=== PATIENT | female | born 1950 | race Caucasian/White ===

== ENCOUNTER 2018-02-26 20:33 | Observation (INO) | payer MEDICARE, BC ==
[~2018-02-26] VITALS: Ht 167.6 cm; Wt 102.3 kg
[~2018-02-26 20:33] MED LIST: ATORVASTATIN CA20 MG PO; LEVOTHYROXINE100 MC1 PO; PROPRANOLOL HCL40 MG PO; Z NIFEDIPINE PO; Z.0.LEVOXYL100 MCG PO; Z.0.LOVASTATIN40 MG PO; Z.2.METFORMIN HCL500 PO
[2018-02-26] MEDS ORDERED: METFORMIN HCL500 MG PO (20:58)
[2018-02-26] MEDS ORDERED: ATORVASTATIN CA20 MG PO (20:58)
[2018-02-26] MEDS ORDERED: LEVOTHYROXINE75 MCG PO (20:58)
[2018-02-26] MEDS ORDERED: VERAPAMIL ER120 MG PO (20:58)
[2018-02-26] MEDS ORDERED: PROPRANOLOL HCL40 MG PO (20:58)
[2018-02-26] MEDS ORDERED: PANTOPRAZOLE 40 MG 10ML VIAL IV STA (21:45)
[2018-02-26] MEDS ORDERED: SODIUM CHLORIDE 0.9% 1000ML 1,000 ML IV STA (21:45)
[2018-02-26 21:59] LABS: BASOPHILS # (AUTO) 0.1 (0.0-0.1); BASOPHILS % 0.6 % (0.0-1.0); EOSINOPHILS # (AUTO) 0.1 (0.0-0.4); EOSINOPHILS % 0.8 % (0.0-6.0); HEMATOCRIT 37.2 % (34.2-44.1); HEMOGLOBIN 12.6 g/dL (12.0-16.0); LYMPHOCYTES # (AUTO) 1.7 (1.0-3.2); MEAN CORPUSCULAR HEMOGLOBIN 31.1 pg (28-32); MEAN CORPUSCULAR HGB CONC 33.9 g/dL (31-35); MEAN CORPUSCULAR VOLUME 91.9 fL (81-99); MONOCYTES # (AUTO) 0.7 (0.2-0.8); NEUTROPHILS # (AUTO) 8.8 (2.1-6.9); NEUTROPHILS % 77.2 % (38.7-80.0); PLATELET COUNT 283 x10e3/uL (140-360); RED BLOOD COUNT 4.05 x10e6/uL (3.6-5.1); RED CELL DISTRIBUTION WIDTH 12.9 % (11.7-14.4)
[2018-02-26 22:04] LABS: INR 0.99; PROTHROMBIN TIME 12.3 seconds (11.9-14.5)
[2018-02-26 22:07] LABS: PARTIAL THROMBOPLASTIN TIME 22.5 seconds (23.8-35.5)
[2018-02-26 22:12] LABS: ALANINE AMINOTRANSFERASE 27 IU/L (0-55); ALBUMIN 3.3 g/dL (3.5-5.0); ALBUMIN/GLOBULIN RATIO 1.1 (0.8-2.0); ALKALINE PHOSPHATASE 95 IU/L (40-150); ANION GAP 13.5 mmol/L (8-16); BLOOD UREA NITROGEN 19 mg/dL (7-26); BUN/CREATININE RATIO 28 (6-25); CALCIUM 8.1 mg/dL (8.4-10.2); CARBON DIOXIDE 21 mmol/L (22-29); CHLORIDE 107 mmol/L (98-107); CREATINE KINASE 43 IU/L (29-168); CREATININE, SERUM 0.68 mg/dL (0.57-1.11); EST GLOMERULAR FILTRATION RATE > 60 ML/MIN (60-); GLUCOSE 105 mg/dL (74-118); MAGNESIUM 1.7 MG/DL (1.3-2.1); POTASSIUM 4.5 mmol/L (3.5-5.1); SODIUM 137 mmol/L (136-145)
[2018-02-26 22:32] LABS: THYROID STIMULATING HORMONE 1.252 uIU/mL (0.350-4.940)
[2018-02-26 23:08] LABS: BILIRUBIN,URINE NEGATIVE (NEGATIVE); CLARITY,URINE CLEAR (CLEAR); COLOR,URINE YELLOW (YELLOW); KETONES,URINE NEGATIVE (NEGATIVE); LEUKOCYTE ESTERASE ,URINE NEGATIVE (NEGATIVE); NITRITE,URINE NEGATIVE (NEGATIVE); PROTEIN,URINE DIPSTICK TRACE (NEGATIVE); URINE UROBILINOGEN 0.2 mg/dL (0.2 - 1)
--- NOTE | 2018-02-26 23:15 | Diagnostic Imaging Report ---
EXAMINATION: Head and cervical spine CT without contrast. HISTORY: Status post fall week ago, head trauma, severe headache, blurry vision COMPARISON: None. TECHNIQUE: Multidetector axial images were obtained without contrast from the foramen magnum to the vertex and through the cervical spine. The images were reconstructed using brain and bone algorithms. Thin section brain images were reformatted into coronal and sagittal planes. HEAD CT FINDINGS: Skull: No lytic or blastic lesions. No fractures. Parenchyma: Normal. No mass, hemorrhage or CT evidence of acute vascular insult. Brain volume: Normal for age. Ventricles: No hydrocephalus or displacement. Arteries: No density suggestive of thrombus. Dural sinuses: No abnormal density. Extra-axial spaces: No abnormal density. Foramen magnum: No mass, Chiari malformation, or basilar invagination. Sella: No obvious mass. Paranasal/mastoid sinuses: Imaged portions unremarkable. CERVICAL SPINE CT FINDINGS: Alignment:Normal alignment and lordosis. Soft tissues: Normal. Vertebrae: Normal height and density. No acute fracture, infection or neoplasm. Degenerative changes: C4-C5: Facet arthrosis on the left, minimal left foraminal narrowing. C5-C6: Asymmetric to left disc osteophyte and bilateral uncovertebral arthrosis. Severe bilateral foraminal stenoses. C6-C7: Disc osteophyte complex asymmetric to the right, bilateral uncovertebral and facet hypertrophy. Severe right and mild left foraminal stenosis. IMPRESSION: Head CT: No intracranial abnormalities, particularly no hemorrhage. Cervical spine CT: 1. No acute fractures or dislocations. 2. Chronic degenerative changes as described. Note: Acute post traumatic spinal cord, vascular or ligamentous injury cannot adequately be assessed with CT. Signed by: Dr. Jackelyn Gann M.D. on 02/26/2018 11:12 PM
[2018-02-26 23:23] LABS: BACTERIA,URINE RARE /HPF; EPITHELIAL CELLS,URINE FEW /LPF; RBC,URINE 0-5 /HPF (0-5); WBC,URINE (MAN) 0-5 /HPF (0-5)
[2018-02-26] MEDS ORDERED: KETOROLAC TROMETHAMINE 30 MG/ML VIAL IV STA (23:23)
--- NOTE | 2018-02-26 23:25 | Diagnostic Imaging Report ---
EXAMINATION: CHEST SINGLE (PORTABLE) INDICATION: Headache, neck pain status post fall COMPARISON: None FINDINGS: TUBES and LINES: None. LUNGS: Lungs are well inflated. Lungs are clear. There is no evidence of pneumonia or pulmonary edema. PLEURA: No pleural effusion or pneumothorax. HEART AND MEDIASTINUM: The cardiomediastinal silhouette is unremarkable. BONES AND SOFT TISSUES: No acute osseous lesion. Soft tissues are unremarkable. UPPER ABDOMEN: No free air under the diaphragm. IMPRESSION: No acute thoracic abnormality. Signed by: Dr. Duc Rosa M.D. on 02/26/2018 11:21 PM
[2018-02-26] MEDS ORDERED: METOCLOPRAMIDE HCL 10 MG/2ML VIAL IV ONE (23:30)
[2018-02-26] MEDS ORDERED: DIPHENHYDRAMINE HCL INJ 50 MG/ML VIAL IV ONE (23:30)
[2018-02-27] VITALS (9 sets, daily range): BP systolic 90–149; BP diastolic 50–72
[2018-02-27] MEDS ORDERED: ONDANSETRON HCL 4 MG ORAL DISINTEGRATING TAB ONE (00:21)
[2018-02-27] MEDS: HYDROCODONE/APAP 7.5MG-325MG 1 EA TAB PO PRN ×2 (00:21→21:26)
--- OUTSIDE RECORDS SUMMARY | 2018-02-27 00:27 | XMS REPORT ---
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 Allergies, Adverse Reactions, Alerts This patient has no known allergies or adverse reactions. Medications This patient has no known medications. Results Test Description Test Time Test Comments Text Results Atomic Results Result Comments CHEST SINGLE (PORTABLE) [place] [address] Patient Name: IRA DSOUZA MR #: [id number] : 1950 Age/Sex: 67/F Req #: [id number] Adm Physician: Ordered by: ALFONZO THRASHER MD Report #: [id number] Location: ER Room/Bed: Procedure: [id number] DX/CHEST SINGLE (PORTABLE) Exam Date: 02/26/18 Exam Time: 2300 REPORT STATUS: Signed EXAMINATION: CHEST SINGLE (PORTABLE) INDICATION: Headache, neck pain status post fall COMPARISON: None FINDINGS: TUBES and LINES: None. LUNGS: Lungs are well inflated. Lungs are clear. There is no evidence of pneumonia or pulmonary edema. PLEURA: No pleural effusion or pneumothorax. HEART AND MEDIASTINUM: The cardiomediastinal silhouette is unremarkable. BONES AND SOFT TISSUES: No acute osseous lesion. Soft tissues are unremarkable. UPPER ABDOMEN: No free air under the diaphragm. IMPRESSION: No acute thoracic abnormality. Signed by: Dr. Duc Rosa M.D. on 02/26/2018 11:21 PM Dictated By: DUC RODRIGUEZ MD 20 COPY TO: ALFONZO THRASHER MD CT BRAIN WO [place] [address] Patient Name: IRA DSOUZA MR #: [id number] : 1950 Age/Sex: 67/F Req #: [id number] Adm Physician: Ordered by: ALFONZO THRASHER MD Report #: [id number] Location: ER Room/Bed: Procedure: [id number] CT/CT BRAIN WO Exam Date: 02/26/18 Exam Time: 2255 REPORT STATUS: Signed EXAMINATION: Head and cervical spine CT without contrast. HISTORY: Status post fall week ago, head trauma, severe headache, blurry vision COMPARISON: None. TECHNIQUE: Multidetector axial images were obtained without contrast from the foramen magnum to the vertex and through the cervical spine. The images were reconstructed using brain and bone algorithms. Thin section brain images were reformatted into coronal and sagittal planes. HEAD CT FINDINGS: Skull: No lytic or blastic lesions. No fractures. Parenchyma: Normal. No mass, hemorrhage or CT evidence of acute vascular insult. Brain volume: Normal for age. Ventricles: No hydrocephalus or displacement. Arteries: No density suggestive of thrombus. Dural sinuses: No abnormal density. Extra-axial spaces: No abnormal density. Foramen magnum: No mass, Chiari malformation, or basilar invagination. Sella: No obvious mass. Paranasal/mastoid sinuses: Imaged portions unremarkable. CERVICAL SPINE CT FINDINGS: Alignment:Normal alignment and lordosis. Soft tissues: Normal. Vertebrae: Normal height and density. No acute fracture, infection or neoplasm. Degenerative changes: C4-C5: Facet arthrosis on the left, minimal left foraminal narrowing. C5-C6: Asymmetric to left disc osteophyte and bilateral uncovertebral arthrosis. Severe bilateral foraminal stenoses. C6-C7: Disc osteophyte complex asymmetric to the right, bilateral uncovertebral and facet hypertrophy. Severe right and mild left foraminal stenosis. IMPRESSION: Head CT: No intracranial abnormalities, particularly no hemorrhage. Cervical spine CT: 1. No acute fractures or dislocations. 2. Chronic degenerative changes as described. Note: Acute post traumatic spinal cord, vascular or ligamentous injury cannot adequately be assessed with CT. Signed by: Dr. Jackelyn Gann M.D. on 2017 11:12 PM Dictated By: JACKELYN GANN MD 11 Transcribed By: BONNY on 02/26/182311 COPY TO: ALFONZO THRASHER MD CT CERVICAL SPINE WO [place] [address] Patient Name: IRA DSOUZA MR #: [id number] : 1950 Age/Sex: 67/F Req #: [id number] Adm Physician: Ordered by: ALFONZO THRASHER MD Report #: [id number] Location: ER Room/Bed: Procedure: [id number] CT/CT CERVICAL SPINE WO Exam Date: 02/26/18 Exam Time: 5 REPORT STATUS: Signed EXAMINATION: Head and cervical spine CT without contrast. HISTORY: Status post fall week ago, head trauma, severe headache, blurry vision COMPARISON: None. TECHNIQUE : Multidetector axial images were obtained without contrast from the foramen magnum to the vertex and through the cervical spine. The images were reconstructed using brain and bone algorithms. Thin section brain images were reformatted into coronal and sagittal planes. HEAD CT FINDINGS: Skull: No lytic or blastic lesions. No fractures. Parenchyma: Normal. No mass, hemorrhage or CT evidence of acute vascular insult. Brain volume: Normal for age. Ventricles: No hydrocephalus or displacement. Arteries: No density suggestive of thrombus. Dural sinuses: No abnormal density. Extra-axial spaces: No abnormal density. Foramen magnum: No mass, Chiari malformation, or basilar invagination. Sella: No obvious mass. Paranasal/mastoid sinuses: Imaged portions unremarkable. CERVICAL SPINE CT FINDINGS: Alignment:Normal alignment and lordosis. Soft tissues: Normal. Vertebrae: Normal height and density. No acute fracture, infection or neoplasm. Degenerative changes: C4-C5: Facet arthrosis on the left, minimal left foraminal narrowing. C5-C6: Asymmetric to left disc osteophyte and bilateral uncovertebral arthrosis. Severe bilateral foraminal stenoses. C6-C7: Disc osteophyte complex asymmetric to the right, bilateral uncovertebral and facet hypertrophy. Severe right and mild left foraminal stenosis.
[2018-02-27] MEDS ORDERED: DEXTROSE 50% SYRINGE 50 ML IV PRN (00:30)
[2018-02-27] MEDS ORDERED: ONDANSETRON HCL 4 MG ORAL DISINTEGRATING TAB PO ONE (00:30)
[2018-02-27] MEDS ORDERED: KETOROLAC TROMETHAMINE 30 MG/ML VIAL IV PRN (00:30)
[2018-02-27] MEDS: SODIUM CHLORIDE 0.9% 1000ML 1,000 ML IV SCH (05:45)
[2018-02-27 06:35] LABS: BASOPHILS # (AUTO) 0.1 (0.0-0.1); BASOPHILS % 0.5 % (0.0-1.0); EOSINOPHILS # (AUTO) 0.1 (0.0-0.4); EOSINOPHILS % 1.2 % (0.0-6.0); HEMATOCRIT 35.1 % (34.2-44.1); HEMOGLOBIN 11.7 g/dL (12.0-16.0); LYMPHOCYTES # (AUTO) 2.3 (1.0-3.2); LYMPHOCYTES % 22.4 % (18.0-39.1); MEAN CORPUSCULAR HEMOGLOBIN 31.3 pg (28-32); MEAN CORPUSCULAR HGB CONC 33.3 g/dL (31-35); MEAN CORPUSCULAR VOLUME 93.9 fL (81-99); MONOCYTES # (AUTO) 0.8 (0.2-0.8); MONOCYTES % 7.7 % (4.4-11.3); NEUTROPHILS # (AUTO) 6.9 (2.1-6.9); NEUTROPHILS % 67.9 % (38.7-80.0); PLATELET COUNT 294 x10e3/uL (140-360); RED BLOOD COUNT 3.74 x10e6/uL (3.6-5.1); RED CELL DISTRIBUTION WIDTH 12.9 % (11.7-14.4)
[2018-02-27 07:00] LABS: ALANINE AMINOTRANSFERASE 25 IU/L (0-55); ALBUMIN 3.2 g/dL (3.5-5.0); ALBUMIN/GLOBULIN RATIO 1.1 (0.8-2.0); ALKALINE PHOSPHATASE 98 IU/L (40-150); ANION GAP 11.6 mmol/L (8-16); BLOOD UREA NITROGEN 21 mg/dL (7-26); BUN/CREATININE RATIO 27 (6-25); CALCIUM 8.6 mg/dL (8.4-10.2); CARBON DIOXIDE 27 mmol/L (22-29); CHLORIDE 105 mmol/L (98-107); CREATINE KINASE 38 IU/L (29-168); CREATININE, SERUM 0.79 mg/dL (0.57-1.11); EST GLOMERULAR FILTRATION RATE > 60 ML/MIN (60-); GLUCOSE 143 mg/dL (74-118); POTASSIUM 4.6 mmol/L (3.5-5.1); SODIUM 139 mmol/L (136-145)
[2018-02-27] MEDS: INSULIN REGULAR, HUMAN 100 UNIT/1 ML 3ML VIAL SQ SCH ×4 (07:30→21:00)
[2018-02-27] MEDS: MULTIVITAMINS/MINERALS TAB PO SCH (09:25)
[2018-02-27] MEDS: LEVOTHYROXINE SODIUM 125 MCG TAB PO SCH (09:25)
[2018-02-27] MEDS: VERAPAMIL HCL 120 MG TABSR PO SCH (09:25)
[2018-02-27] MEDS: PROPRANOLOL HCL 40 MG TAB PO SCH ×2 (09:26→21:26)
--- NOTE | 2018-02-27 16:16 | History and Physical ---
This 67-year-old female comes in with near syncopal episode. HISTORY OF PRESENTING ILLNESS: Ms. Zofia Gamble was in her usual state of health until about 2 weeks prior to admission the patient had a trip to [place] and fell and slipped on the ice on 02/15/2018, and the patient hit her tailbone and head and was taken to the emergency room at that time. The patient had a CT scan done, CT of the calvarium and also CT of the neck and spine and everything was normal at that time. The patient came home and continued to have neck pain and was seen by me. The patient was ordered an MRI of the C-spine and also of the brain to rule out any concussion or post concussion syndrome and also radicular symptoms. The patient was then doing well until yesterday afternoon when the patient was at her neighbor's house and noticed sudden onset of nausea and she had projectile vomiting and felt dizzy and almost passed out. The patient went home and rested, but the same feeling occurred again and she called her son and he brought her to the emergency room and was admitted for near syncopal syndrome, near syncope and also for post concussion syndrome. PAST MEDICAL HISTORY: History of hypertension, history of hypothyroidism, history of hyperlipidemia, history of essential tremors. MEDICATIONS: Propranolol 40 mg twice a day. Metformin 500 mg 2 tablets twice a day. Verapamil 20 mg daily. Atorvastatin 40 mg daily. Tramadol for pain. Levothyroxine 125 mcg daily. PAST SURGICAL HISTORY: History of gallbladder removal, appendectomy and partial hysterectomy. FAMILY HISTORY: Father is , diabetes mellitus. Mother is with history of diabetes mellitus too. Two brothers and 3 sisters and 2 sons. SOCIAL HISTORY: No history of ETOH, no IV drug abuse. Lives by herself. She is a . Her 2 years ago. No signs of depression or history of depression. PHYSICAL EXAMINATION GENERAL: The patient is alert and oriented x3. HEENT: Normocephalic, atraumatic. Pupils are reactive to light and accommodation. CVS: S1 normal. Regular rate and rhythm. ABDOMEN: Nontender, nondistended. EXTREMITIES: No clubbing, no cyanosis, no edema. NECK: Tenderness to palpation on the cervical and thoracic spine. Radiculopathy present, more towards the right side. Also nuchal rigidity is present too. NEUROLOGIC: Normal. LABORATORY DATA: Within normal limits. CT scan was normal. ASSESSMENT 1. Headache status post fall, near syncopal episode. 2. Radiculopathy. 3. Hypertension. 4. Diabetes mellitus. 5. Concussion syndrome. The patient will have an MRI done and is scheduled for CT brain, CT C-spine and CT thoracic spine. Will follow the patient after that and continue monitoring the patient for nausea and vomiting and also rule out subdural hematoma. Further recommendations depending on clinical course. Will see if the patient's MRI is productive, and if not she can go home with Robaxin and tramadol. If positive, then will consult Dr. Nela Carnes, neurologist. Will keep the patient in the hospital until the MRI is done. Job#: [id number]
--- NOTE | 2018-02-27 16:19 | Diagnostic Imaging Report ---
Exam: Brain MRI without IV contrast History: Headache, fall on 02/15 Comparison studies: Head CTs of 02/26/2018 and 12/12/2014 Technique: Sagittal axial T2 FS, axial DWI, axial and coronal T2 flair, axial T1 FLAIR and axial T2*GRE. Intravenous contrast: None Findings: Scalp: Normal in signal . No masses . Bone marrow: Normal in signal intensity. Brain sulci: Appropriate for age. Ventricles: Normal in size. No hydrocephalus. Extra axial spaces: No mass, no fluid collection. Parenchyma: No mass, hemorrhage or acute ischemia. A few scattered T2 FLAIR hyperintense foci in the supratentorial white matter are nonspecific but most compatible with chronic small vessel ischemic changes. Suprasellar region: No abnormalities. Craniocervical junction: Patent foramen magnum. No Chiari malformation. Vessels: Normal flow-voids in the arteries and sinuses. IMPRESSION: 1. No acute intracranial abnormalities. 2. Mild supratentorial chronic microvascular ischemic changes. Signed by: Dr. Dante Dave M.D. on 02/27/2018 4:16 PM
[2018-02-27] MEDS ORDERED: PROPRANOLOL HCL 40 MG TAB PO SCH (17:00)
[2018-02-27] MEDS ORDERED: METFORMIN HCL 500 MG TAB PO SCH (17:00)
[2018-02-27 17:47] LABS: CREATINE KINASE 43 IU/L (29-168)
[2018-02-27] MEDS: METFORMIN HCL 500 MG TAB PO SCH (21:26)
[2018-02-27] MEDS: ATORVASTATIN 40 MG TAB PO SCH (21:26)
[2018-02-27 22:39] LABS: CREATINE KINASE 45 IU/L (29-168)
[2018-02-28] VITALS: BP 125/58
[2018-02-28 04:00] VITALS: BP 118/53
[2018-02-28] MEDS: LEVOTHYROXINE SODIUM 125 MCG TAB PO SCH (06:04)
[2018-02-28] MEDS: INSULIN REGULAR, HUMAN 100 UNIT/1 ML 3ML VIAL SQ SCH ×4 (07:30→20:35)
[2018-02-28] MEDS ORDERED: METFORMIN HCL 500 MG TAB PO SCH (08:00)
[2018-02-28 08:29] VITALS: BP 171/70
[2018-02-28] MEDS: METFORMIN HCL 500 MG TAB PO SCH ×2 (08:33→21:23)
[2018-02-28] MEDS: MULTIVITAMINS/MINERALS TAB PO SCH (08:34)
[2018-02-28] MEDS: VERAPAMIL HCL 120 MG TABSR PO SCH (08:34)
[2018-02-28] MEDS: PROPRANOLOL HCL 40 MG TAB PO SCH ×2 (08:34→21:23)
[2018-02-28] MEDS ORDERED: HYDROMORPHONE 2MG/ML INJ IV ONE (09:00)
[2018-02-28] MEDS ORDERED: LEVOTHYROXINE SODIUM 75 MCG TAB PO SCH (09:00)
[2018-02-28] MEDS ORDERED: ATORVASTATIN 20 MG TAB PO SCH (09:00)
[2018-02-28] MEDS: SODIUM CHLORIDE 0.9% 1000ML 1,000 ML IV SCH ×2 (10:01→19:04)
[2018-02-28 12:03] VITALS: BP 160/65
--- NOTE | 2018-02-28 13:42 | Diagnostic Imaging Report ---
History: Fall Comparison studies: CT neck 02/26/2018 Technique: Sagittal T1, T2 and IR, axial T2 and axial gradient echo Intravenous contrast: None Findings: Alignment: Normal lordosis. No scoliosis. Cervicomedullary junction: No abnormalities. Patent foramen magnum. Soft tissues: No T2 hyperintense inflammatory changes. Spinal cord: Normal in size and signal from the foramen magnum through T4 Vertebrae: Normal in height and signal intensity. No fractures, infection or neoplasm. Degenerative changes: Diffuse disc degeneration with decreased T2 signal and without significant endplate changes C2-C3: No abnormalities. C3-C4: Bilateral facet hypertrophy with patent canal and foramina C4-C5: Diffuse disc osteophyte complex and left uncinate process hypertrophy with patent canal and mild left foraminal narrowing C5-C6: Diffuse disc osteophyte complex, bilateral uncinate process hypertrophy and facet hypertrophy results in mild canal stenosis and severe bilateral foraminal narrowing C6-C7: Asymmetric right disc osteophyte complex and right uncinate process hypertrophy results in mild canal stenosis and severe right foraminal narrowing C7-T1: Patent canal and foramina IMPRESSION: 1. No acute cervical spine abnormality. 2. Degenerative changes as described above Signed by: DR Gaetano Foster M.D. on 02/28/2018 1:39 PM
[2018-02-28] MEDS ORDERED: HYDROMORPHONE 1MG/1ML INJ IV NR (14:30)
[2018-02-28 15:32] VITALS: BP 106/55
[2018-02-28] MEDS ORDERED: MAGNESIUM HYDROXIDE 30 ML UDC PO PRN (16:30)
[2018-02-28] MEDS ORDERED: DIPHENOXYLATE/ATROPINE TAB PO PRN (16:30)
[2018-02-28] MEDS: ONDANSETRON HCL INJ 2 MG/ML VIAL IV PRN ×2 (17:50→21:52)
[2018-02-28 20:00] VITALS: BP 134/60
--- NOTE | 2018-02-28 20:32 | Diagnostic Imaging Report ---
EXAMINATION: MRI of the thoracic spine without contrast HISTORY: Neck and head pain for the last week, strain COMPARISON: None available TECHNIQUE: Sagittal T1 without contrast, T2, and STIR; axial T2. Coronal T2. Intravenous contrast: none FINDINGS: Curvature: Normal kyphosis. Vertebrae: No evidence of recent fracture, infection, or neoplasm. Discs: T6-T7: Asymmetric to left disc bulge with tiny 2 mm left subarticular disc protrusion, no associated significant canal or foraminal stenosis. No spinal cord or nerve root compression. T7-T8: Minimal asymmetric to right disc bulge and facet arthrosis without significant stenoses. Spinal canal: No mass or abnormal blood vessels. Spinal cord: Normal size and signal intensity. Foramina: Unremarkable. Paraspinal soft tissues: Partially visualized T2 hyperintense focus in the right kidney, likely a cyst. Proximal ribs: No abnormal signal intensity. IMPRESSION: Minimal degenerative changes in the midthoracic spine without significant spinal canal or foraminal stenoses, otherwise unremarkable thoracic spine MRI. Signed by: Dr. Jackelyn Gann M.D. on 02/28/2018 8:29 PM
[2018-02-28] MEDS: METHYLPREDNISOLONE SOD SUCC 40 MG/ML VIAL IV SCH (21:24)
[2018-02-28] MEDS: ATORVASTATIN 40 MG TAB PO SCH (21:24)
[2018-03-01] VITALS: BP 148/62
[2018-03-01 02:24] VITALS: BP 148/62
[2018-03-01 04:00] VITALS: BP 146/65
[2018-03-01] MEDS: METHYLPREDNISOLONE SOD SUCC 40 MG/ML VIAL IV SCH (05:03)
[2018-03-01] MEDS: LEVOTHYROXINE SODIUM 125 MCG TAB PO SCH (05:03)
[2018-03-01] MEDS: INSULIN REGULAR, HUMAN 100 UNIT/1 ML 3ML VIAL SQ SCH (07:30)
[2018-03-01 08:00] VITALS: BP 122/74
[2018-03-01] MEDS: PROPRANOLOL HCL 40 MG TAB PO SCH (10:11)
[2018-03-01] MEDS: VERAPAMIL HCL 120 MG TABSR PO SCH (10:11)
[2018-03-01] MEDS: METFORMIN HCL 500 MG TAB PO SCH (10:11)
[2018-03-01] MEDS: MULTIVITAMINS/MINERALS TAB PO SCH (10:11)
--- NOTE | 2018-03-01 12:48 | Consultation ---
DATE OF CONSULTATION: March 01, 2018 NEUROLOGIC CONSULTATION HISTORY OF PRESENT ILLNESS: Ms. Gamble is a 67-year-old, [id number]-utqypnpr woman with a past medical history significant for hypertension, hyperlipidemia, diabetes mellitus type 2, and chronic intermittent vertigo, who presented to [facility] on February 27, 2018, with headache, dizziness further described as a vertiginous sensation, nausea, vomiting and multiple other symptoms. Approximately 2 weeks ago, the patient was in [place] when she slipped on a patch of black ice. The patient fell backwards, first landing on her tailbone on a hard surface, then hitting the back of her head on the same hard surface. There was no loss of consciousness, but Ms. Gamble reports feeling dazed after her fall. Emergency medical services were notified, and the patient was transported to a hospital in [place], [place], where she underwent a CT of the brain and MRI of the brain. Both studies were reportedly normal. The patient was discharged from the emergency center. Over the past 2 weeks, the patient has experienced intermittent headaches, which she describes as follows: The pain is generalized. Ms. Gamble has difficulty describing the quality of the pain, but reports the pain is moderate to severe in intensity. Associated with the headache, the patient has experienced mild photophobia and phonophobia, nausea and vomiting. Either with or without the headaches, the patient has experienced episodic dizziness which she further describes as a vertiginous sensation. In addition to these symptoms, the patient and her family members have noted some mild confusion off and on over the past 2 weeks. Ms. Gamble has not identified any triggers for these symptoms. Her headaches are alleviated by ezjg-edn-jfjoadt analgesics (i.e., Aleve or Tylenol). Over the past 2 weeks, the patient has also taken a muscle relaxant on an as-needed basis for spasm and tightness of the trapezius, cervical, thoracic, and lumbosacral paraspinous muscles. Upon arrival in the emergency center, the patient's neurological examination was reportedly nonfocal. Documentation of the neurological examination is not available at this time. A CT of the brain without contrast was performed and did not show evidence of recent large territorial ischemia, hemorrhage, mass or mass effect. Ms. Gamble was admitted to [facility] under observation status for further evaluation and treatment. The patient does not report a prior history of headaches. As noted above, the patient does endorse a history of chronic intermittent vertigo. REVIEW OF SYSTEMS: Nausea, vomiting, mild confusion, neck and low back pain, headache, and dizziness. Otherwise, a 12-point review of systems is negative. PAST MEDICAL HISTORY: Hypertension, hyperlipidemia, diabetes mellitus type 2, thyroid disease, chronic intermittent vertigo. PAST SURGICAL HISTORY: Cholecystectomy, appendectomy, total hysterectomy, left breast lumpectomy (benign). PAST HOSPITALIZATIONS: Childbirth times 2, for surgeries and procedures as listed. FAMILY HISTORY: Patient's maternal and paternal grandparents are . Their medical histories are unknown. Patient's father is . He had hypertension, diabetes mellitus, and COPD. The patient's mother is . She had diabetes mellitus. Patient has one brother who is from coronary artery disease/myocardial infarction. The patient's sister is alive and has Meniere's disease. Ms. Gamble has two sons who are both healthy. SOCIAL HISTORY: The patient is for approximately 2 years. She has a business degree and worked in [employer] for approximately 30 years. Ms. Gamble retired one year ago. The patient does not report current or prior tobacco, alcohol, or recreational drug use. HOME MEDICATIONS 1. Propranolol 40 mg by mouth twice daily. 2. Verapamil ER 120 mg by mouth daily. 3. Atorvastatin 40 mg by mouth daily. 4. Metformin 500 mg by mouth twice daily. 5. Levothyroxine 125 mcg by mouth daily. ALLERGIES: PENICILLIN CAUSES ANAPHYLAXIS. NO KNOWN FOOD ALLERGIES. NO KNOWN ALLERGY TO LATEX. NO KNOWN ALLERGIES TO IODINE OR OTHER CONTRAST MATERIALS. PHYSICAL EXAMINATION VITAL SIGNS: Height 66 inches, weight 225 pounds, BMI 36.4 kg per meter squared. Blood pressure 122/74 mmHg. Pulse 64 beats per minute. Respiratory rate 18 breaths per minute. Oxygen saturation 95% on room air. GENERAL: The patient is awake and alert, does not appear in distress. Obese. HEENT: Normocephalic, atraumatic. Pupils are equal, round and reactive to light. Moist mucous membranes. NECK: Supple. No appreciable thyromegaly. No appreciable carotid bruits. CARDIOVASCULAR: S1, S2 regular rate and rhythm. No murmurs, rubs or gallops. RESPIRATORY: Clear to auscultation bilaterally. No wheezes, rhonchi, or rales. EXTREMITIES: The skin is warm and dry. No clubbing, cyanosis or edema. The posterior tibial and dorsalis pedis pulses are 2+ and symmetric. SKIN: No rashes or lesions. NEUROLOGIC MEMORY/ATTENTION: The patient is awake and alert, oriented to person, place, time and situation. CRANIAL NERVES: Cranial nerve I: Not tested. Cranial nerves II, III, IV, and : Pupils are equal and round, react briskly to light (from 4 mm to 2 mm). Extraocular movements are intact. No nystagmus. Cranial nerve V: Sensation to light touch and pinprick is intact in the bilateral V1 through V3 distributions. Strength of the temporalis and masseter muscles is within normal limits. Cranial nerve VII: The face is symmetric as are all facial movements. Strength is within normal limits. Cranial nerve VIII: Hearing is intact to finger rub bilaterally. Cranial nerves IX and X: The soft palate elevates equally and symmetrically. Cranial nerve XI: Normal strength of the bilateral sternocleidomastoid and trapezius muscles. Cranial nerve XII: The tongue protrudes midline and moves symmetrically from side to side. STRENGTH: Bulk is normal, and strength is 5/5 in the bilateral deltoids, biceps, triceps, wrist flexors and extensors, finger flexors and extensors, intrinsic hand muscles, hip flexors, knee flexors and extensors, ankle dorsiflexion and plantar flexion, and intrinsic foot muscles. Tone is normal. DTRs: Deep tendon reflexes are 2+ and symmetric at the triceps, biceps, brachioradialis and patellas. The Achilles reflexes are 1+ and symmetric. Plantar responses are flexor bilaterally. Absent clonus. SENSATION: Sensation is intact to light touch and pinprick in both arms and both legs. CEREBELLAR: Trkttw-booo-iccsrh and heel-damico movements are intact without dysmetria. There is an intention tremor with bilateral pcwkpv-cnfo-mralma maneuvers. Rapid alternating movements are intact. GAIT: Deferred. SPEECH: Spontaneous speech is normal without appreciable dysarthria or aphasia. Repetition is intact. INVOLUNTARY MOVEMENTS: A high-frequency, low-amplitude tremor affecting both hands and both arms was observed. PRONATOR DRIFT: None. LABORATORY DATA: Serum glucoses over the past 24 hours are as follows. 99, 122, 196, 144. DIAGNOSTIC STUDIES 1. MRI of the brain without contrast, 02/27/2018: On my review, there is no evidence of large territorial ischemia, hemorrhage, mass, or mass effect. There are scattered nonspecific foci of T2/FLAIR hyperintensity compatible with mild chronic small vessel ischemic disease. 2. MRI of the cervical spine without contrast, 02/27/2018: There is degenerative disk disease throughout the cervical spine, most prominent at C5-C6, C6-C7. At these levels, there is mild narrowing of the spinal canal without compression of the cervical spinal cord. There is moderate to severe bilateral neural foraminal narrowing observed at these levels as well. 3. MRI of thoracic spine without contrast, 02/27/2018: Mild degenerative disk disease in the midthoracic spine. The spinal canal and neural foramina are patent. ASSESSMENT AND PLAN: Ms. Gamble is a 67-year-old, idsjw-zycu-xhdtdoos woman with a past medical history significant for hypertension, hyperlipidemia, diabetes mellitus type 2, and chronic intermittent vertigo, who is status post fall with head injury. She was admitted to [facility] on February 27, 2018, with headache, dizziness, nausea, vomiting, and other symptoms. The patient's neurological examination is nonfocal except as follows: A high-frequency, low-amplitude tremor affecting both hands and both arms is observed. This probably represents either enhanced physiological tremor or benign essential tremor. The patient's laboratory data and neuroimaging studies have been reviewed and are documented above. Ms. Gamble has postconcussion syndrome. The common symptoms of postconcussion syndrome include headache, which may have migrainous features, confusion, dizziness, nausea, and vomiting. The diagnosis was discussed in detail with the patient and her son who was at the bedside. Ms. Gamble was informed her symptoms will gradually improve; however, it may take up to four to six weeks before the patient returns to her neurological baseline. Ms. Gamble was advised to rest as much as possible over the next 2 weeks. She may take dyxs-pit-elstttn analgesics (Aleve or Tylenol) for headache and other pain. The patient may also continue to take a muscle relaxant on an as-needed basis for muscle spasm or tightness. However, the patient was cautioned regarding the possible side effects of this medication and advised to use it sparingly. After resting for the next 2 weeks, Ms. Cromwell should gradually resume her normal activities. As stated above, the patient's symptoms should resolve within the next 2 to 4 weeks. There are no further recommendations from the neurology service at this time. The patient may be discharged to home if the primary care service is in agreement. Thank you for this consultation. Time spent was 70 minutes. Job#: [id number] NARDA THORNTON
[2018-03-02 08:00] VITALS: BP 133/60
== END 2018-03-01 11:02 | disposition home health service (06) ==
LOC: ER 20:33 → IMCU 02-27 00:24 → ERHOLD 02-27 00:27 → IMCU 02-27 00:58
PROVIDERS: ADMIT Family Medicine; ATTEND Family Medicine
DX: F07.81 Postconcussional syndrome (principal); G44.319 Acute post-traumatic headache, not intractable; S16.1XXA Strain of muscle, fascia and tendon at neck level, initial encounter; W00.0XXA Fall on same level due to ice and snow, initial encounter; I10 Essential (primary) hypertension; E03.9 Hypothyroidism, unspecified; E78.5 Hyperlipidemia, unspecified; G25.0 Essential tremor; R55 Syncope and collapse; M54.10 Radiculopathy, site unspecified; Z88.0 Allergy status to penicillin; E11.9 Type 2 diabetes mellitus without complications
CPT/HCPCS: 36415 ×4; 70450; 70551; 71045; 72125; 72141; 72146; 80053 ×2; 81001; 82550 ×2; 82553 ×2; 82948 ×3; 83735; 84443; 84484 ×2; 85025 ×2; 85610; 85730; 93005; 99284; G0378 ×3; J1170; J1200; J1885; J2405; J2765; J2920 ×2; J7030 ×3

== ENCOUNTER → 2018-12-29 | Outpatient (CLI) | payer MEDICARE, BC ==
[~2018-12-29] MED LIST changes: +LEVOTHYROXINE75 MCG PO; +METFORMIN HCL500 MG PO; +VERAPAMIL ER120 MG PO
== END ==
LOC: RAD 13:33
PROVIDERS: ATTEND Family Medicine
DX: I80.01 Phlebitis and thrombophlebitis of superficial vessels of right lower extremity (principal)
CPT/HCPCS: 93971

== ENCOUNTER → 2019-05-06 | Outpatient (CLI) | payer MEDICARE, BC ==
[~2019-05-06] MED LIST changes: +LORAZEPAM INJ 2 MG/ML VIAL ONE
--- NOTE | 2019-05-06 14:48 | Diagnostic Imaging Report ---
MRI SPINE CERVICAL WO HISTORY: Cervical radiculopathy COMPARISON: Cervical spine MRI 02/27/2018 TECHNIQUE: Sagittal T1, sagittal T2, sagittal inversion recovery, axial T2, axial GRE, and axial T1 weighted MR images of the cervical spine were obtained without intravenous contrast. Motion artifacts obscure some details. DISCUSSION: Alignment: Normal lordosis. No scoliosis. Vertebrae: No definite evidence for fractures, infection, or neoplasm. Cervicomedullary junction: No abnormalities. Spinal cord: The ventral cord may be mildly flattened by disc at C5-C6 and C6-C7. The cord is otherwise normal in signal and morphology from the foramen magnum through T5. Soft tissues: No signal abnormalities. Mild multilevel cervical disc degeneration is most prominent at C5-C6 and C6-C7. This is superimposed on a congenitally narrow cervical spinal canal. Mild atlantoaxial arthrosis is present as well. C2-C3: Patent canal and foramina. C3-C4: Mild right foraminal stenosis due to uncovertebral and facet arthrosis. No significant canal or left foraminal stenosis. C4-C5: Mild canal stenosis due to posterior disc osteophyte complex. Mild bilateral foraminal stenoses due to uncovertebral and facet arthrosis. C5-C6: Moderate canal stenosis due to posterior disc osteophyte complex and ligamentum flavum thickening. Moderate to severe bilateral foraminal stenoses due to uncovertebral and facet arthrosis. C6-C7: Moderate canal stenosis due to posterior disc osteophyte complex and ligamentum flavum thickening. Moderate to severe right and moderate left foraminal stenoses due to uncovertebral and facet arthrosis. C7-T1: Patent canal and foramina. IMPRESSION: 1. Mild multilevel disc degeneration, most prominent at C5-C6 and C6-C7, superimposed on a congenitally narrow cervical spinal canal. 2. Multilevel congenital/degenerative canal stenoses - moderate at C5-C6 and C6-C7. 3. Multilevel degenerative foraminal stenoses - moderate to severe bilaterally at C5-C6; moderate to severe right and moderate left at C6-C7. Signed by: Dr. Ever Kam M.D. on 05/06/2019 2:45 PM
== END ==
LOC: MRI 09:18
PROVIDERS: ATTEND Family Medicine
DX: M54.12 Radiculopathy, cervical region (principal)
CPT/HCPCS: 72141; J2060

== ENCOUNTER → 2019-07-09 | Outpatient (CLI) | payer MEDICARE, BC ==
[~2019-07-09] MED LIST changes: +IOPAMIDOL 370 MG/ML 200 ML INFUS..BTL INJ ONE; -LORAZEPAM INJ 2 MG/ML VIAL ONE; +SODIUM CHLORIDE 0.9% 50ML 50 ML ONE
[2019-07-09 15:59] LABS: BLOOD UREA NITROGEN 13 mg/dL (7-26); BUN/CREATININE RATIO 16 (6-25); CREATININE, SERUM 0.81 mg/dL (0.57-1.11); EST GLOMERULAR FILTRATION RATE > 60 ML/MIN (60-)
--- NOTE | 2019-07-09 17:20 | Diagnostic Imaging Report ---
CT of the abdomen and pelvis, with contrast, 07/09/2019. History: Upper abdominal pain. Comparison: None available. Technique: Multidetector CT scanning of the abdomen and pelvis was performed from the level of the lung bases to the inferior pubic rami after intravenous administration of contrast. No oral contrast was given. Coronal and sagittal multiplanar reformations were obtained. RADIATION DOSE: Total DLP: 869 mGy*cm Dose modulation, iterative reconstruction, and/or weight based adjustment of the mA/kV was utilized to reduce the radiation dose to as low as reasonably achievable. Discussion: LUNG BASES: No visualized abnormalities. ABDOMEN: A simple cyst is present in the lower pole of the right kidney. There is fatty infiltration of the pancreas. The liver, biliary tree, spleen, adrenal glands, and left kidney are normal. Cholecystectomy clips are present. The hepatic vein, portal vein, and splenic vein are patent. The abdominal aorta is within normal limits for size. Evaluation of bowel is limited without oral contrast. There is no bowel dilatation. Multiple diverticuli are present throughout the colon without evidence of adjacent inflammation. There is no evidence of adenopathy or free fluid. PELVIS: The bladder is nondistended. The uterus and adnexa are absent. There is no evidence of free fluid or adenopathy. BONES AND SOFT TISSUES: Advanced degenerative changes are present throughout the lumbar spine without evidence of lytic or sclerotic lesion. IMPRESSION: 1. Extensive colonic diverticulosis without evidence of diverticulitis. 2. Simple right renal cyst. 3. Fatty infiltration of the pancreas. 4. Status post cholecystectomy and hysterectomy. Signed by: Charlie Canela on 07/09/2019 5:16 PM
== END ==
LOC: CT 14:47
PROVIDERS: ATTEND Internal Medicine Gastroenterology
DX: R10.10 Upper abdominal pain, unspecified (principal)
CPT/HCPCS: 36415; 74177; 82565; 84520; Q9967

== ENCOUNTER → 2019-07-21 | Day surgery (SDC) | payer MEDICARE, BC ==
[2019-07-15 09:22] LABS: BASOPHILS % 0.4 % (0.0-1.0); EOSINOPHILS # (AUTO) 0.1 (0.0-0.4); EOSINOPHILS % 1.7 % (0.0-6.0); HEMATOCRIT 35.9 % (34.2-44.1); LYMPHOCYTES # (AUTO) 1.2 (1.0-3.2); MEAN CORPUSCULAR HEMOGLOBIN 30.6 pg (28-32); MEAN CORPUSCULAR HGB CONC 33.4 g/dL (31-35); MEAN CORPUSCULAR VOLUME 91.6 fL (81-99); MONOCYTES # (AUTO) 0.6 (0.2-0.8); MONOCYTES % 8.3 % (4.4-11.3); NEUTROPHILS % 72.3 % (38.7-80.0); PLATELET COUNT 261 x10e3/uL (140-360); RED BLOOD COUNT 3.92 x10e6/uL (3.6-5.1); RED CELL DISTRIBUTION WIDTH 13.9 % (11.7-14.4)
[~2019-07-21] MED LIST changes: +FENTANYL CITRATE/PF 100MCG/2 ML INJ ONE; +HYOSCYAMINE 0.125 MG TAB ONE; -IOPAMIDOL 370 MG/ML 200 ML INFUS..BTL INJ ONE; +MIDAZOLAM HCL 2 MG/2 ML VIAL ONE; +PROPOFOL IV EMULSION 10 MG/ML 50 ML VIAL ONE; -SODIUM CHLORIDE 0.9% 50ML 50 ML ONE
--- OUTSIDE RECORDS SUMMARY | 2019-07-21 11:51 | XMS REPORT | Summary of Care ---
Author Author [facility] Organization [facility] Address Unknown Phone Unavailable Encounter HQ Encntr_marie(FIN) [id number] Date(s): 11/04/15 - 11/04/15 [facility] [address] [place] [address]- Discharge Disposition: Home Attending Physician: Flako Villa MD Referring Physician: Flako Villa MD Vital Signs No data available for this section Problem List No data available for this section Allergies, Adverse Reactions, Alerts Substance Reaction Severity Status NKDA Active Medications No data available for this section Results No data available for this section Immunizations No data available for this section Procedures No data available for this section Social History No data available for this section Assessment and Plan No data available for this section
--- OUTSIDE RECORDS SUMMARY | 2019-07-21 11:51 | XMS REPORT | Summary of Care ---
Author Author [facility] Address Unknown Phone Unavailable Encounter HQ Nati(FIN) [id number] Date(s): 06/02/18 - 07/01/18 [facility] Encounter Diagnosis Weakness (Final) - Abnormal posture (Final) - Benign paroxysmal vertigo, unspecified ear (Final) - 07/07/18 Chronic pain syndrome (Final) - Cervicalgia (Final) - Weakness (Final) - Abnormal posture (Final) - Discharge Disposition: Home or Self Care Attending Physician: Nela aCrnes MD Vital Signs No data available for this section Problem List Condition Effective Dates Status Health Status Informant Diabetes mellitus Resolved type 2(Confirmed) Hypertension(Confirm Resolved ed) Hypothyroidism(Confi Resolved rmed) Vertigo(Confirmed) Resolved Allergies, Adverse Reactions, Alerts Substance Reaction Severity Status penicillins Active Medications No data available for this section Results No data available for this section Immunizations No data available for this section Procedures Procedure Date Related Diagnosis Body Site Status Appendectomy Completed Cholecystectomy Completed Hysterectomy Completed Social History Social History Type Response Alcohol Past, Previous treatment: None. Smoking Status Never smoker; Ready to change: No; Concerns about tobacco use in household: No; Exposure to Tobacco Smoke None; Cigarette Smoking Last 365 Days No; Reg Smoking Cessation Counseling No entered on: 07/11/16 Assessment and Plan No data available for this section
--- OUTSIDE RECORDS SUMMARY | 2019-07-21 11:51 | XMS REPORT | Summary of Care ---
Author Author [facility] Address Unknown Phone Unavailable Encounter HQ Encntr_marie(FIN) [id number] Date(s): 05/01/18 - 05/30/18 [facility] Discharge Disposition: Home or Self Care Attending Physician: Nela Carnes MD Vital Signs No data available for [...]
--- OUTSIDE RECORDS SUMMARY | 2019-07-21 11:51 | XMS REPORT | Summary of Care ---
Author Author [facility] Organization [facility] Address Unknown Phone Unavailable Encounter KARY Damian(JATIN) [id number] Date(s): 05/21/16 - 05/21/16 [facility] [address] [place] [address]- Discharge Disposition: Home Attending Physician: Timothy Meier MD Referring Physician: Timothy Meier MD Vital Signs No data available for this section Problem List No data available for this section Allergies, Adverse Reactions, Alerts Substance Reaction Severity Status NKDA Active Medications No data available for this section Results CHEM PANEL Most recent to 1 oldest [Reference Range]: eGFR 66 mL/min/1.73m2 1 *NA* (05/21/16 9:35 AM) POC Creatinine 0.9 mg/dL [0.5-1.4 mg/dL] (05/21/16 9:35 AM) 1Result Comment: The eGFR is calculated using the CKD-EPI formula. In most young, healthy individuals the eGFR will be >90 mL/min/1.73m2. The eGFR declines with age. An eGFR of 60-89 may be normal in some populations, particularly the elderly, for whom the CKD-EPI formula has not been extensively validated. Use of the eGFR is not recommended in the following populations: Individuals with unstable creatinine concentrations, including patients and those with serious co-morbid conditions. Patients with extremes in muscle mass or diet. The data above are obtained from the National Kidney Disease Education Program ( NKDEP) which additionally recommends that when the eGFR is used in patients with extremes of body mass index for purposes of drug dosing, the eGFR should be mul tiplied by the estimated BMI. Immunizations No data available for this section Procedures No data available for this section Social History No data available for this section Assessment and Plan No data available for this section
--- OUTSIDE RECORDS SUMMARY | 2019-07-21 11:51 | XMS REPORT | Continuity of Care Document ---
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 Name Role Phone [facility] Unavailable Unavailable Problems Problem Status Onset Date Classification Date Reported Comments Source DX: SCREENING NO PAIN,NO LUMPS,NO IMP Active 04/07/2019 [facility] Benign paroxysmal vertigo, unspecified ear 07/08/2018 01/18/2019 [facility] [place] SCREENING Active 03/20/2018 [facility] SCREENING MAMMOGRAM Active 01/30/2017 [facility] UNK Active 06/25/2016 [facility] R39.15 URGENCY OF URINATION/ N39.0 URI Active 05/10/2016 [facility] ROUTINEPT IS AWARE OF $50 FEE Active 10/11/2015 [facility] SCREENING MAMMO Active 10/28/2014 [facility] HEAD/NECK/SHOULDER Active 04/24/2011 [facility] [place] Diabetes mellitus type 2 (disorder) Resolved Problem 04/10/2019 [facility] [place] Hypertensive disorder, systemic arterial (disorder) Resolved Problem 04/10/2019 [facility] [place] Hypothyroidism (disorder) Resolved Problem 04/10/2019 [facility] [place] Vertigo (finding) Resolved Problem 04/10/2019 [facility], [facility] [place] Weakness 01/18/2019 [facility] [place] Abnormal posture 01/18/2019 [facility] [place] Chronic pain syndrome 01/18/2019 [facility] [place] Cervicalgia 01/18/2019 [facility] [place] Encounter for screening mammogram for malignant neoplasm of breast 04/10/2019 [facility] SCREEN MAMMOGRAM NEC Active [facility] ENCNTR SCREEN MAMMOGRAM FOR MALIGNANT NE Active [facility] URGENCY OF URINATION Active [facility] URINARY TRACT INFECTION, SITE NOT SPECIF Active [facility] ESSENTIAL (PRIMARY) HYPERTENSION Active [facility] BENIGN PAROXYSMAL VERTIGO, UNSPECIFIED E Active [facility] [place] CHRONIC PAIN SYNDROME Active [facility] [place] CERVICALGIA Active [facility] [place] WEAKNESS Active [facility] [place] ABNORMAL POSTURE Active [facility] [place] Medications Medication Details Route Status Patient Instructions Ordering Provider Order Date Source Ondansetron 4 mg, Route: IVP, ONCE, Dosing Weight 99.545, kg, PRN Nausea & Vomiting, Start date: 07/11/16 9:38:00 CDT Inactive 07/11/2016 [facility] Promethazine 6.25 mg, Route: IVPB, ONCE, Dosing Weight 99.545, kg, PRN Nausea & Vomiting, Start date: 07/11/16 9:38:00 CDT Inactive 07/11/2016 [facility] Meperidine 12.5 mg, Route: IVP, Q30Min, Dosing Weight 99.545, kg, PRN Other -See Comment, For shivering, Start date: 07/11/16 9:38:00 CDT, Duration: 2 doses or times, Stop date: Limited # of times Inactive 07/11/2016 [facility] Naloxone 0.4 mg, Route: IVP, Q2MIN, Dosing Weight 99.545, kg, PRN Narcotic Reversal, Start date: 07/11/16 9:38:00 CDT, Duration: 8 doses or times, Stop date: Limited # of times Inactive 07/11/2016 [facility] Diphenhydramine 12.5 mg, Route: IVP, Drug form: INJ, Q6H, Dosing Weight 99.545, kg, PRN Itching, Start date: 07/11/16 9:38:00 CDT, Duration: 30 day, Stop date: 08/10/16 9:37:00 CDT Inactive 07/11/2016 [facility] Acetaminophen 1,000 mg, Route: IVPB, Drug form: INJ, ONCE, Dosing Weight 99.545, kg, PRN Pain Score 1-3, Start date: 07/11/16 9:38:00 CDT, Duration: 1 doses or times, Stop date: Limited # of times Inactive 07/11/2016 [facility] Oxycodone 5 mg, Route: PO, Drug form: TAB, Q4H, Dosing Weight 99.545, kg, PRN Pain Score 4-6, Start date: 07/11/16 9:38:00 CDT, Duration: 30 day, Stop date: 08/10/16 9:37:00 CDT Inactive 07/11/2016 [facility] Fentanyl 25 microgram, Route: IVP, Q5Min, Dosing Weight 99.545, kg, PRN Pain Score 4-6, Start date: 07/11/16 9:38:00 CDT, Duration: 4 doses or times, Stop date: Limited # of times Inactive 07/11/2016 [facility] Hydromorphone 0.5 mg, Route: IVP, Q5Min, Dosing Weight 99.545, kg, PRN Pain Score 7-10, Start date: 07/11/16 9:38:00 CDT, Duration: 4 doses or times, Stop date: Limited # of times Inactive 07/11/2016 [facility] Flumazenil 0.2 mg, Route: IVP, PRN, Dosing Weight 99.545, kg, PRN Benzodiazepine Reversal, Initial dose, Start date: 07/11/16 9:38:00 CDT, Duration: 30 day, Stop date: 08/10/16 9:37:00 CDT Inactive 07/11/2016 [facility] Calcium Chloride 0.0014 MEQ/ML / Potassium Chloride 0.004 MEQ/ML / Sodium Chloride 0.103 MEQ/ML / Sodium Lactate 0.028 MEQ/ML Injectable Solution 1,000 mL, Rate: 125 ml/hr, Infuse over: 8 hr, Route: IV, Dosing Weight 99.545 kg, Total Volume: 1,000, Start date: 07/11/16 9:38:00 CDT, Duration: 30 day, Stop date: 08/10/16 9:37:00 CDT Inactive 07/11/2016 [facility] Sodium Chloride 0.154 MEQ/ML Injectable Solution 500 mL, Rate: 125 ml/hr, Infuse over: 4 hr, Route: IV, Dosing Weight 99.545 kg, Total Volume: 500, Start date: 07/11/16 9:38:00 CDT, Duration: 30 day, Stop date: 08/10/16 9:37:00 CDT Inactive 07/11/2016 [facility] Hydralazine 10 mg, Route: IVP, Q20Min, Dosing Weight 99.545, kg, PRN Elevated BP, Start date: 07/11/16 9:38:00 CDT, Duration: 2 doses or times, Stop date: Limited # of times Inactive 07/11/2016 [facility] esmolol 10 mg, Route: IVP, Q5Min, Dosing Weight 99.545, kg, PRN Other -See Comment, Start date: 07/11/16 9:38:00 CDT, Duration: 5 doses or times, Stop date: Limited # of times Inactive 07/11/2016 [facility] Labetalol 10 mg, Route: IVP, Q5Min, Dosing Weight 99.545, kg, PRN Elevated BP, Start date: 07/11/16 9:38:00 CDT, Duration: 5 doses or times, Stop date: Limited # of times Inactive 07/11/2016 [facility] midazolam (ANES) Route: IV, Drug form: SOLN, ONCE, Stop date: 07/11/16 9:38:00 CDT Inactive 07/11/2016 [facility] metoclopramide (ANES) Route: IV, Drug form: INJ, ONCE, Stop date: 07/11/16 9:38:00 CDT Inactive 07/11/2016 [facility] ondansetron (ANES) Route: IV, Drug form: INJ, ONCE, Stop date: 07/11/16 9:38:00 CDT Inactive 07/11/2016 [facility] dexamethasone (ANES) Route: IV, Drug form: INJ, ONCE, Stop date: 07/11/16 9:38:00 CDT Inactive 07/11/2016 [facility] fentaNYL (ANES) Route: IV, Drug form: INJ, ONCE, Stop date: 07/11/16 9:38:00 CDT Inactive 07/11/2016 [facility] propofol (ANES) Route: IV, Drug form: INJ, ONCE, Stop date: 07/11/16 9:38:00 CDT Inactive 07/11/2016 [facility] lidocaine (ANES) Route: IV, Drug form: INJ, ONCE, Stop date: 07/11/16 9:38:00 CDT Inactive 07/11/2016 [facility] phenylephrine (ANES) Route: IV, Drug form: INJ, ONCE, Stop date: 07/11/16 9:38:00 CDT Inactive 07/11/2016 [facility] Phenazopyridine hydrochloride 100 MG Oral Tablet [Pyridium] 100 mg=1 tab, PO, TID, X 7 day, # 21 tab, 0 Refill(s) Active 07/11/2016 [facility] Ciprofloxacin 500 MG Oral Tablet [Cipro] 500 mg=1 tab, PO, Q12H, X 7 day, # 14 tab, 0 Refill(s) Active 07/11/2016 [facility] ciprofloxacin (ANES) (ANES) Route: IV, Drug form: INJ, Start date: 07/11/16 8:58:00 CDT, Stop date: 07/11/16 9:58:00 CDT Inactive 07/11/2016 [facility] LR 1000 mL INJ (ANES) Route: IV, Total Volume: 1,000, Start date: 07/11/16 8:50:00 CDT, Stop date: 07/11/16 9:50:00 CDT Inactive 07/11/2016 [facility] Albuterol 0.833 MG/ML / Ipratropium [place] 0.167 MG/ML Inhalant Solution 3 mL, Route: NEB, Dosing Weight 99.545, kg, ONCE, STAT, Start date: 07/11/16 8:31:00 CDT, Stop date: 07/11/16 8:31:00 CDT Inactive 07/11/2016 [facility] Sodium Chloride 0.154 MEQ/ML Injectable Solution 500 mL, Rate: 25 ml/hr, Infuse over: 20 hr, Route: IV, Dosing Weight 99.545 kg, Total Volume: 500, Start date: 07/11/16 8:31:00 CDT, Duration: 30 day, Stop date: 08/10/16 8:30:00 CDT Inactive 07/11/2016 [facility] Calcium Chloride 0.0014 MEQ/ML / Potassium Chloride 0.004 MEQ/ML / Sodium Chloride 0.103 MEQ/ML / Sodium Lactate 0.028 MEQ/ML Injectable Solution 1,000 mL, Rate: 25 ml/hr, Infuse over: 40 hr, Route: IV, Dosing Weight 99.545 kg, Total Volume: 1,000, Start date: 07/11/16 8:31:00 CDT, Duration: 30 day, Stop date: 08/10/16 8:30:00 CDT Inactive 07/11/2016 [facility] levothyroxine 125 mcg (0.125 mg) oral tablet 125 microgram=1 tab, PO, Daily, # 30 tab, 0 Refill(s) Active 07/04/2016 [facility] propranolol 40 mg oral tablet 40 mg=1 tab, PO, Daily, # 60 tab, 1 Refill(s) Active 07/04/2016 [facility] atorvastatin 40 mg oral tablet 40 mg=1 tab, PO, Bedtime, # 30 tab, 0 Refill(s) Active 07/04/2016 [facility] Metformin hydrochloride 500 MG Oral Tablet 500 mg=1 tab, PO, BID-Meals, # 30 tab, 0 Refill(s) Active 07/04/2016 [facility] verapamil 120 mg oral tablet 120 mg=1 tab, PO, Daily, # 270 tab, 0 Refill(s) Active 07/04/2016 [facility] Allergies, Adverse Reactions, Alerts Substance Category Reaction Severity Reaction type Status Date Reported Comments Source penicillins Assertion Drug allergy Active [facility] Immunizations No Data Provided for This Section Results Order Name Results Value Reference Range Date Interpretation Comments Source CHEM PANEL eGFR 73 07/04/2016 Result Comment: The eGFR is calculated using the [...] from the National Kidney Disease Education Program (NKDEP) which additionally recommends that when the eGFR is used in patients with extremes of body mass index for purposes of drug dosing, the eGFR should be multiplied by the estimated BMI. [facility] CHEM PANEL Glucose Lvl 87 70 - 99 07/04/2016 [facility] CHEM PANEL Sodium Lvl 136 135 - 145 07/04/2016 [facility] CHEM PANEL Creatinine Lvl 0.83 0.50 - 1.40 07/04/2016 [facility] CHEM PANEL Chloride Lvl 105 95 - 109 07/04/2016 [facility] CHEM PANEL Potassium Lvl 3.8 3.5 - 5.1 07/04/2016 [facility] CHEM PANEL CO2 31 24 - 32 07/04/2016 [facility] CHEM PANEL Calcium Lvl 8.5 8.5 - 10.5 07/04/2016 [facility] CHEM PANEL BUN 11 7 - 22 07/04/2016 [facility] CHEM PANEL AGAP 3.8 10.0 - 20.0 07/04/2016 [facility] HEMATOLOGY Eosinophils # 0.1 0.0 - 0.5 07/04/2016 [facility] HEMATOLOGY Segs-Bands # 4.9 1.5 - 8.1 07/04/2016 [facility] HEMATOLOGY Basophils 1.0 0.0 - 1.0 07/04/2016 [facility] HEMATOLOGY Lymphocytes # 2.2 1.0 - 5.5 07/04/2016 [facility] HEMATOLOGY Monocytes # 0.7 0.0 - 0.8 07/04/2016 [facility] HEMATOLOGY Lymphocytes 27.6 20.0 - 40.0 07/04/2016 [facility] HEMATOLOGY Monocytes 8.5 2.0 - 12.0 07/04/2016 [facility] HEMATOLOGY Eosinophils 1.4 0.0 - 4.0 07/04/2016 [facility] HEMATOLOGY Segs 61.5 45.0 - 75.0 07/04/2016 [facility] HEMATOLOGY Basophils # 0.1 0.0 - 0.2 07/04/2016 [facility] HEMATOLOGY INR 0.94 0.85 - 1.17 07/04/2016 [facility] HEMATOLOGY PTT 25.9 22.9 - 35.8 07/04/2016 [facility] HEMATOLOGY PT 12.9 12.0 - 14.7 07/04/2016 [facility] HEMATOLOGY MCV 89.2 80.0 - 98.0 07/04/2016 [facility] HEMATOLOGY Hct 39.8 36.0 - 48.0 07/04/2016 [facility] HEMATOLOGY Hgb 13.3 12.0 - 16.0 07/04/2016 [facility] HEMATOLOGY MCH 29.9 27.0 - 31.0 07/04/2016 [facility] HEMATOLOGY WBC 8.0 3.7 - 10.4 07/04/2016 [facility] HEMATOLOGY RBC 4.46 4.20 - 5.40 07/04/2016 [facility] HEMATOLOGY Platelet 265 133 - 450 07/04/2016 [facility] HEMATOLOGY MCHC 33.5 32.0 - 36.0 07/04/2016 [facility] HEMATOLOGY RDW 14.1 11.5 - 14.5 07/04/2016 [facility] HEMATOLOGY MPV 8.9 7.4 - 10.4 07/04/2016 [facility] URINE AND STOOL UA Urobilinogen <=1.0 mg/dL 0.1 - 1.0 07/04/2016 [facility] URINE AND STOOL UA Leuk Est Negative (07/04/16 4:29 PM) Negative 07/04/2016 [facility] URINE AND STOOL UA Nitrite Negative (07/04/16 4:29 PM) Negative 07/04/2016 [facility] URINE AND STOOL UA Blood Small *ABN* (07/04/16 4:29 PM) Negative 07/04/2016 [facility] URINE AND STOOL UA Bili Negative *NA* (07/04/16 4:29 PM) Negative 07/04/2016 [facility] URINE AND STOOL UA Bacteria Occasional /HPF None Seen /HPF 07/04/2016 [facility] URINE AND STOOL UA RBC 3 0 - 2 07/04/2016 [facility] URINE AND STOOL UA WBC 2 0 - 5 07/04/2016 [facility] URINE AND STOOL UA Sq Epi Many /LPF Few /LPF 07/04/2016 [facility] URINE AND STOOL UA pH 5.0 5.0 - 8.0 07/04/2016 [facility] URINE AND STOOL UA Spec Grav 1.023 <=1.030 07/04/2016 [facility] URINE AND STOOL UA Turbidity Clear (07/04/16 4:29 PM) Clear 07/04/2016 [facility] URINE AND STOOL UA Color Yellow *NA* (07/04/16 4:29 PM) Yellow 07/04/2016 [facility] URINE AND STOOL UA Ketones Negative mg/dL Negative mg/dL 07/04/2016 [facility] URINE AND STOOL UA Glucose Negative mg/dL Negative mg/dL 07/04/2016 [facility] URINE AND STOOL UA Protein Negative mg/dL Negative mg/dL 07/04/2016 [facility] CHEM PANEL POC Creatinine 0.9 0.5 - 1.4 05/21/2016 [facility] CHEM PANEL eGFR 66 05/21/2016 Result Comment: The eGFR is calculated using the [...] from the National Kidney Disease Education Program (NKDEP) which additionally recommends that when the eGFR is used in patients with extremes of body mass index for purposes of drug dosing, the eGFR should be multiplied by the estimated BMI. [facility] Pathology Reports No Data Provided for This Section Diagnostic Reports Report Value Date Source Breast Mammo Scrn HARSHAD w eloise incl CAD MA BILATERAL DIGITAL SCREENING MAMMOGRAM 3D/2D WITH CAD: 04/08/2019 CLINICAL: /Screen. Current study was evaluated with a Computer Aided Detection (CAD) system. COMPARISON:Comparison is made to exams dated: 04/01/2018 mammogram, 03/16/2017 mammogram, 11/04/2015 mammogram, 11/02/2014 mammogram, 10/27/2013 mammogram, and 09/30/2012 mammogram - [facility]. TECHNIQUE: Digital Breast Tomosynthesis was performed and utilized for Interpretation. [employer] Version 1.3 was utilized for computer aided detection. FINDINGS: The tissue of both breasts is almost entirely fat. There are benign calcifications in both breasts. There also are post operative findings in the left breast. No significant masses, calcifications, or other findings are seen in either breast. There has been no significant interval change. IMPRESSION: BENIGN RECOMMENDATION:There is no mammographic evidence of malignancy. A 1 year screening mammogram is recommended.(04/08/2020) This exam was interpreted at [id number] for [facility]. Niko denton/penrad:04/08/2019 15:40:47 Senior Accounting Specialist(s): Deepali Jauregui, [facility] letter sent: BI-RADS 1/2 Mammogram BI-RADS: 2 Benign 04/08/2019 [facility] Breast Mammo Scrn HARSHAD w eloise incl CAD MA BILATERAL DIGITAL SCREENING MAMMOGRAM 3D/2D WITH CAD: 04/01/2018 CLINICAL: /Routine. Current study was evaluated with a Computer Aided Detection (CAD) system. COMPARISON:Comparison is made to exams dated: 03/16/2017 mammogram, 11/04/2015 mammogram, 11/02/2014 mammogram, 10/27/2013 mammogram, 09/30/2012 mammogram, and 09/19/2011 mammogram - [facility]. TECHNIQUE: Digital Breast Tomosynthesis was performed and utilized for Interpretation. [employer] Version 1.3 was utilized for computer aided detection. FINDINGS: The tissue of both breasts is almost entirely fat. There are benign calcifications in both breasts. There also are post operative findings in the left breast. No significant masses, calcifications, or other findings are seen in either breast. There has been no significant interval change. IMPRESSION: BENIGN RECOMMENDATION:There is no mammographic evidence of malignancy. A 1 year screening mammogram is recommended.(04/02/2019) This exam was interpreted at [id number] for [facility]. Niko annet/penrad:04/01/2018 15:22:51 Senior Accounting Specialist(s): Leandra Preciado [facility] letter sent: BI-RADS 1/2 Mammogram BI-RADS: 2 Benign 04/01/2018 [facility] Breast Mammo Scrn HARSHAD incl CAD MA - BREAST MAMMO SCRN HARSHAD INCL CAD MA BILATERAL DIGITAL SCREENING MAMMOGRAM WITH CAD: 03/16/2017 CLINICAL: Routine. Current study was evaluated with a Computer Aided Detection (CAD) system. Comparison is made to exams dated: 11/04/2015 mammogram, 11/02/2014 mammogram, 10/27/2013 mammogram, 09/30/2012 mammogram, 09/19/2011 mammogram and 09/15/2010 mammogram - [facility]. The tissue of both breasts is almost entirely fat. There are benign calcifications in both breasts. There also are post operative findings in the left breast. No significant masses, calcifications, or other findings are seen in either breast. There has been no significant interval change. IMPRESSION: BENIGN There is no mammographic evidence of malignancy. A 1 year screening mammogram is recommended. Niko denton/penrad:03/18/2017 10:13:36 Senior Accounting Specialist: Leandra Preciado, [facility] This exam was dictated and interpreted by [id number] for [facility]. letter sent: Normal exam Mammogram BI-RADS: 2 Benign 03/16/2017 [facility] Abdomen/Pelvis w IV contrast CT CT ABDOMEN/PELVIS WITH IV CONTRAST WITH SAGITTAL AND CORONAL REFORMATTED IMAGES HISTORY: Urgency of urination, urinary tract infection, left-sided abdominal pain COMPARISON: None available. FINDINGS: Calcified granuloma in the right lung base. Lung bases are otherwise clear. The liver, spleen, adrenal glands, and left kidney appear normal. A 3 cm right renal cyst is noted. Right kidney is otherwise normal. Cholecystectomy is noted. Moderate fatty atrophy of the pancreas. Tiny fat-containing umbilical hernia. Urinary bladder is unremarkable. Changes of hysterectomy are noted. There is moderate to severe colonic diverticulosis. There is mild soft tissue inflammation about a distal left colonic diverticulum, likely mild acute diverticulitis. No evidence of perforation or abscess (axial series 3 images 73-78). Appendix not visualized. Small bowel unremarkable. No ascites, pneumoperitoneum, or adenopathy. Moderate aortic atherosclerotic calcification. No aggressive osseous lesion. Mixed sclerosis and lucency of the left pubic bone is nonspecific and may be degenerative, posttraumatic, or Paget's disease. IMPRESSION: 1. Moderate to severe colonic diverticulosis. 2. Findings suggestive of mild acute diverticulitis of the distal left colon. 3. Other chronic findings as described. SL: [id number] 05/21/2016 [facility] Digital Mammo Screen Harshad MA w eloise - DIGITAL MAMMO SCREEN HARSHAD MA W ELOISE BILATERAL DIGITAL SCREENING MAMMOGRAM 3D/2D WITH CAD: 11/04/2015 CLINICAL: Screen. 2D digital mammographic images and 3D digital tomosynthesis images were obtained in the CC and MLO projections. Current study was evaluated with a Computer Aided Detection (CAD) system. Comparison is made to exams dated: 11/02/2014 mammogram, 10/27/2013 mammogram, 09/30/2012 mammogram, 09/19/2011 mammogram, 09/15/2010 mammogram and 06/27/2009 mammogram - [facility]. The tissue of both breasts is almost entirely fat. There are benign calcifications in both breasts. There also are post operative findings in the left breast. No significant masses, calcifications, or other findings are seen in either breast. There has been no significant interval change. IMPRESSION: BENIGN There is no mammographic evidence of malignancy. A 1 year screening mammogram is recommended. Niko denton/taran:11/07/2015 08:04:38 Senior Accounting Specialist: Deepali Jauregui, [facility] This exam was dictated and interpreted by [id number] for [facility]. letter sent: Normal exam Mammogram BI-RADS: 2 Benign 11/04/2015 [facility] Digital Mammo Screening Harshad MA - DIGITAL MAMMO SCREENING HARSHAD MA BILATERAL DIGITAL SCREENING MAMMOGRAM WITH CAD: 11/02/2014 CLINICAL: Other Screening Mammogram. Current study was evaluated with a Computer Aided Detection (CAD) system. Comparison is made to exams dated: 10/27/2013 mammogram, 09/30/2012 mammogram, 09/19/2011 mammogram, 09/15/2010 mammogram, 06/27/2009 mammogram and 04/27/2008 mammogram - [facility]. The tissue of both breasts is almost entirely fat. There are benign calcifications in both breasts. There also are post operative findings in the left breast. No significant masses, calcifications, or other findings are seen in either breast. There has been no significant interval change. IMPRESSION: BENIGN There is no mammographic evidence of malignancy. A screening mammogram in one year is recommended. Niko denton/taran:11/03/2014 08:01:42 Senior Accounting Specialist: Deepali Jauregui, [facility] This exam was dictated and interpreted by [id number] for [facility] Breast [place]. letter sent: Normal exam Mammogram BI-RADS: 2 Benign 11/02/2014 [facility] Consultation Notes No Data Provided for This Section Discharge Summaries No Data Provided for This Section History and Physicals No Data Provided for This Section Vital Signs Vital Sign Value Date Comments Source Systolic (mm Hg) 121 07/11/2016 [facility] Diastolic (mm Hg) 57 07/11/2016 [facility] Systolic (mm Hg) 110 07/11/2016 [facility] Diastolic (mm Hg) 68 07/11/2016 [facility] Systolic (mm Hg) 106 07/11/2016 [facility] Diastolic (mm Hg) 64 07/11/2016 [facility] Respitory Rate 11 07/11/2016 [facility] Respitory Rate 13 07/11/2016 [facility] Respitory Rate 13 07/11/2016 [facility] BMI Calculated 36.52 07/04/2016 [facility] Weight 99.545 07/04/2016 [facility] Height 165.1 cm 07/04/2016 [facility] Heart Rate 60 07/04/2016 [facility] Temperature Oral (F) 98.3 F 07/04/2016 [facility] Encounters Location Location Details Encounter Type Encounter Number Reason For Visit Attending Provider ADM Date DC Date Status Source [facility] Outpatient [id number] Flako Villa 11/02/2014 11/03/2014 [facility] Outpatient [id number] Flako Villa 11/04/2015 11/05/2015 [facility] Outpatient [id number] Timothy Meier 05/21/2016 05/22/2016 [facility] Day Surgery [id number] Timothy Meier 07/11/2016 07/11/2016 [facility] Outpatient [id number] Flako Villa 03/16/2017 03/17/2017 [facility] Outpatient [id number] Flako Villa 04/01/2018 04/02/2018 [facility] OP Therapy Patients [id number] Nela Grosson 05/01/2018 05/31/2018 [facility] Therapy Patients [id number] Nela Grosson 06/02/2018 07/02/[address] [facility] Outpatient [id number] Flako Villa 04/08/2019 04/09/2019 [facility] Procedures Procedure Code Date Perfomer Comments Source Appendectomy [id number] [facility] Cholecystectomy [id number] [facility] Hysterectomy [id number] [facility] Assessment and Plan No Data Provided for This Section Plan of Care No Data Provided for This Section Social History Social History Date Source Social History TypeResponse Alcohol Past, Previous treatment: None. Smoking Status Never smoker; Ready to change: No; Concerns about tobacco use in household: No; Exposure to Tobacco Smoke None; Cigarette Smoking Last 365 Days No; Reg Smoking Cessation Counseling No entered on: 07/11/16 07/04/2016 [facility] Social History TypeResponse Alcohol Past, Previous treatment: None. Smoking Status Never smoker; Ready to change: No; Concerns about tobacco use in household: No; Exposure to Tobacco Smoke None; Cigarette Smoking Last 365 Days No; Reg Smoking Cessation Counseling No entered on: 07/11/16 07/04/2016 [facility] Family History No Data Provided for This Section Advance Directives No Data Provided for This Section Functional Status No Data Provided for This Section
--- OUTSIDE RECORDS SUMMARY | 2019-07-21 11:51 | XMS REPORT | Summary of Care ---
Author Author [facility] Organization [facility] Address Unknown Phone Unavailable Encounter KARY Damian(JATIN) [id number] Date(s): 07/11/16 - 07/11/16 [facility] [address] [place] [address]- [phone] Discharge Disposition: Home or Self Care Attending Physician: Timothy Meier MD Referring Physician: Timothy Meier MD Vital Signs 1 2 3 Most recent to oldest [Reference Range]: 165.1 cm (07/04/16 4:06 PM) Height 98.3 DegF (07/04/16 3:58 PM) Temperature Oral [96.4-99.1 DegF] 121/57 mmHg (07/11/16 11:30 AM) 110/68 mmHg (07/11/16 11:00 AM) 106/64 mmHg (07/11/16 10:30 AM) Blood Pressure [90-140/60-90 mmHg] 11 BRMIN *LOW* (07/11/16 10:30 AM) 13 BRMIN *LOW* (07/11/16 10:15 AM) 13 BRMIN *LOW* (07/11/16 10:02 AM) Respiratory Rate [14-20 BRMIN] 60 bpm (07/04/16 3:58 PM) Peripheral Pulse Rate [60-100 bpm] 99.545 kg (07/04/16 4:06 PM) Weight 36.52 m2 (07/04/16 4:06 PM) Body Mass Index Problem List Condition Effective Dates Status Health Status Informant Diabetes mellitus Resolved type 2(Confirmed) Hypertension(Confirm Resolved ed) Hypothyroidism(Confi Resolved rmed) Vertigo(Confirmed) Resolved Allergies, Adverse Reactions, Alerts Substance Reaction Severity Status penicillins Active Medications albuterol-ipratropium 2.5-0.5 mg inhalation solution 3 mL, Route: NEB, Dosing Weight 99.545, kg, ONCE, STAT, Start date: 07/11/16 8:3 1:00 CDT, Stop date: 07/11/16 8:31:00 CDT Start Date: 07/11/16 Stop Date: 07/11/16 Status: Discontinued ANES acetaminophen 1,000 mg, Route: IVPB, Drug form: INJ, ONCE, Dosing Weight 99.545, kg, PRN Pain Score 1-3, Start date: 07/11/16 9:38:00 CDT, Duration: 1 doses or times, Stop da te: Limited # of times Start Date: 07/11/16 Stop Date: 07/11/16 Status: Discontinued ANES diphenhydrAMINE 12.5 mg, Route: IVP, Drug form: INJ, Q6H, Dosing Weight 99.545, kg, PRN Itching, Start date: 07/11/16 9:38:00 CDT, Duration: 30 day, Stop date: 08/10/16 9:37:00 CDT Start Date: 07/11/16 Stop Date: 07/11/16 Status: Discontinued ANES esmolol 10 mg, Route: IVP, Q5Min, Dosing Weight 99.545, kg, PRN Other -See Comment, Star t date: 07/11/16 9:38:00 CDT, Duration: 5 doses or times, Stop date: Limited # o f times Start Date: 07/11/16 Stop Date: 07/11/16 Status: Discontinued ANES fentaNYL 25 microgram, Route: IVP, Q5Min, Dosing Weight 99.545, kg, PRN Pain Score 4-6, S tart date: 07/11/16 9:38:00 CDT, Duration: 4 doses or times, Stop date: Limited # of times Start Date: 07/11/16 Stop Date: 07/11/16 Status: Discontinued ANES fentaNYL 50 microgram, Route: IVP, Q5Min, Dosing Weight 99.545, kg, PRN Pain Score 7-10, Start date: 07/11/16 9:38:00 CDT, Duration: 2 doses or times, Stop date: Limited # of times Start Date: 07/11/16 Stop Date: 07/11/16 Status: Discontinued ANES flumazenil 0.2 mg, Route: IVP, PRN, Dosing Weight 99.545, kg, PRN Benzodiazepine Reversal, Initial dose, Start date: 07/11/16 9:38:00 CDT, Duration: 30 day, Stop date: 9:37:00 CDT Start Date: 07/11/16 Stop Date: 07/11/16 Status: Discontinued ANES hydrALAZINE 10 mg, Route: IVP, Q20Min, Dosing Weight 99.545, kg, PRN Elevated BP, Start date : 07/11/16 9:38:00 CDT, Duration: 2 doses or times, Stop date: Limited # of time s Start Date: 07/11/16 Stop Date: 07/11/16 Status: Discontinued ANES HYDROmorphone 0.5 mg, Route: IVP, Q5Min, Dosing Weight 99.545, kg, PRN Pain Score 7-10, Start date: 07/11/16 9:38:00 CDT, Duration: 4 doses or times, Stop date: Limited # of times Start Date: 07/11/16 Stop Date: 07/11/16 Status: Discontinued ANES labetalol 10 mg, Route: IVP, Q5Min, Dosing Weight 99.545, kg, PRN Elevated BP, Start date: 07/11/16 9:38:00 CDT, Duration: 5 doses or times, Stop date: Limited # of times Start Date: 07/11/16 Stop Date: 07/11/16 Status: Discontinued ANES meperidine 12.5 mg, Route: IVP, Q30Min, Dosing Weight 99.545, kg, PRN Other -See Comment, F or shivering, Start date: 07/11/16 9:38:00 CDT, Duration: 2 doses or times, Stop date: Limited # of times Start Date: 07/11/16 Stop Date: 07/11/16 Status: Discontinued ANES naloxone 0.4 mg, Route: IVP, Q2MIN, Dosing Weight 99.545, kg, PRN Narcotic Reversal, Star t date: 07/11/16 9:38:00 CDT, Duration: 8 doses or times, Stop date: Limited # o f times Start Date: 07/11/16 Stop Date: 07/11/16 Status: Discontinued ANES ondansetron 4 mg, Route: IVP, ONCE, Dosing Weight 99.545, kg, PRN Nausea & Vomiting, Start date: 07/11/16 9:38:00 CDT Start Date: 07/11/16 Stop Date: 07/11/16 Status: Discontinued ANES oxyCODONE 5 mg, Route: PO, Drug form: TAB, Q4H, Dosing Weight 99.545, kg, PRN Pain Score 4 -6, Start date: 07/11/16 9:38:00 CDT, Duration: 30 day, Stop date: 08/10/16 9:37 :00 CDT Start Date: 07/11/16 Stop Date: 07/11/16 Status: Discontinued ANES oxyCODONE 10 mg, Route: PO, Drug form: TAB, Q4H, Dosing Weight 99.545, kg, PRN Pain Score 7-10, Start date: 07/11/16 9:38:00 CDT, Duration: 30 day, Stop date: 08/10/16 9: 37:00 CDT Start Date: 07/11/16 Stop Date: 07/11/16 Status: Discontinued ANES promethazine 6.25 mg, Route: IVPB, ONCE, Dosing Weight 99.545, kg, PRN Nausea & Vomiting, Start date: 07/11/16 9:38:00 CDT Start Date: 07/11/16 Stop Date: 07/11/16 Status: Discontinued atorvastatin 40 mg oral tablet 40 mg=1 tab, PO, Bedtime, # 30 tab, 0 Refill(s) Start Date: 07/04/16 Status: Ordered Cipro 500 mg oral tablet 500 mg=1 tab, PO, Q12H, X 7 day, # 14 tab, 0 Refill(s) Start Date: 07/11/16 Stop Date: 07/18/16 Status: Ordered ciprofloxacin (ANES) (ANES) Route: IV, Drug form: INJ, Start date: 07/11/16 8:58:00 CDT, Stop date: 07/11/16 9:58:00 CDT Start Date: 07/11/16 Stop Date: 07/11/16 Status: Completed dexamethasone (ANES) Route: IV, Drug form: INJ, ONCE, Stop date: 07/11/16 9:38:00 CDT Start Date: 07/11/16 Stop Date: 07/11/16 Status: Completed fentaNYL (ANES) Route: IV, Drug form: INJ, ONCE, Stop date: 07/11/16 9:38:00 CDT Start Date: 07/11/16 Stop Date: 07/11/16 Status: Completed Lactated Ringers Injection IV 1000 mL 1,000 mL, Rate: 25 ml/hr, Infuse over: 40 hr, Route: IV, Dosing Weight 99.545 kg , Total Volume: 1,000, Start date: 07/11/16 8:31:00 CDT, Duration: 30 day, Stop date: 08/10/16 8:30:00 CDT Start Date: 07/11/16 Stop Date: 07/11/16 Status: Discontinued Lactated Ringers Injection IV 1000 mL 1,000 mL, Rate: 125 ml/hr, Infuse over: 8 hr, Route: IV, Dosing Weight 99.545 kg , Total Volume: 1,000, Start date: 07/11/16 9:38:00 CDT, Duration: 30 day, Stop date: 08/10/16 9:37:00 CDT Start Date: 07/11/16 Stop Date: 07/11/16 Status: Discontinued levothyroxine 125 mcg (0.125 mg) oral tablet 125 microgram=1 tab, PO, Daily, # 30 tab, 0 Refill(s) Start Date: 07/04/16 Status: Ordered lidocaine (ANES) Route: IV, Drug form: INJ, ONCE, Stop date: 07/11/16 9:38:00 CDT Start Date: 07/11/16 Stop Date: 07/11/16 Status: Completed LR 1000 mL INJ (ANES) Route: IV, Total Volume: 1,000, Start date: 07/11/16 8:50:00 CDT, Stop date: 9:50:00 CDT Start Date: 07/11/16 Stop Date: 07/11/16 Status: Completed metFORMIN 500 mg oral tablet 500 mg=1 tab, PO, BID-Meals, # 30 tab, 0 Refill(s) Start Date: 07/04/16 Status: Ordered metoclopramide (ANES) Route: IV, Drug form: INJ, ONCE, Stop date: 07/11/16 9:38:00 CDT Start Date: 07/11/16 Stop Date: 07/11/16 Status: Completed midazolam (ANES) Route: IV, Drug form: SOLN, ONCE, Stop date: 07/11/16 9:38:00 CDT Start Date: 07/11/16 Stop Date: 07/11/16 Status: Completed ondansetron (ANES) Route: IV, Drug form: INJ, ONCE, Stop date: 07/11/16 9:38:00 CDT Start Date: 07/11/16 Stop Date: 07/11/16 Status: Completed phenylephrine (ANES) Route: IV, Drug form: INJ, ONCE, Stop date: 07/11/16 9:38:00 CDT Start Date: 07/11/16 Stop Date: 07/11/16 Status: Completed propofol (ANES) Route: IV, Drug form: INJ, ONCE, Stop date: 07/11/16 9:38:00 CDT Start Date: 07/11/16 Stop Date: 07/11/16 Status: Completed propranolol 40 mg oral tablet 40 mg=1 tab, PO, Daily, # 60 tab, 1 Refill(s) Start Date: 07/04/16 Stop Date: 08/03/16 Status: Ordered Pyridium 100 mg oral tablet 100 mg=1 tab, PO, TID, X 7 day, # 21 tab, 0 Refill(s) Start Date: 07/11/16 Stop Date: 07/18/16 Status: Ordered Sodium Chloride 0.9% IV 500 mL 500 mL, Rate: 25 ml/hr, Infuse over: 20 hr, Route: IV, Dosing Weight 99.545 kg, Total Volume: 500, Start date: 07/11/16 8:31:00 CDT, Duration: 30 day, Stop date : 08/10/16 8:30:00 CDT Start Date: 07/11/16 Stop Date: 07/11/16 Status: Discontinued Sodium Chloride 0.9% IV 500 mL 500 mL, Rate: 125 ml/hr, Infuse over: 4 hr, Route: IV, Dosing Weight 99.545 kg, Total Volume: 500, Start date: 07/11/16 9:38:00 CDT, Duration: 30 day, Stop date : 08/10/16 9:37:00 CDT Start Date: 07/11/16 Stop Date: 07/11/16 Status: Discontinued verapamil 120 mg oral tablet 120 mg=1 tab, PO, Daily, # 270 tab, 0 Refill(s) Start Date: 07/04/16 Status: Ordered Results ELECTROLYTES Most recent to 1 oldest [Reference Range]: Sodium Lvl [135-145 136 mEq/L mEq/L] (07/04/16 4:29 PM) Potassium Lvl 3.8 mEq/L [3.5-5.1 mEq/L] (07/04/16 4:29 PM) Chloride Lvl [95-109 105 mEq/L mEq/L] (07/04/16 4:29 PM) CO2 [24-32 mEq/L] 31 mEq/L (07/04/16 4:29 PM) AGAP [10.0-20.0 3.8 mEq/L mEq/L] *LOW* (07/04/16 4:29 PM) CHEM PANEL Most recent to 1 oldest [Reference Range]: Creatinine Lvl 0.83 mg/dL [0.50-1.40 mg/dL] (07/04/16 4:29 PM) eGFR 73 mL/min/1.73m2 1 *NA* (07/04/16 4:29 PM) BUN [7-22 mg/dL] 11 mg/dL (07/04/16 4:29 PM) Glucose Lvl [70-99 87 mg/dL mg/dL] (07/04/16 4:29 PM) Calcium Lvl 8.5 mg/dL [8.5-10.5 mg/dL] (07/04/16 4:29 PM) 1Result Comment: The eGFR is calculated using [...] be mul tiplied by the estimated BMI. URINE AND STOOL Most recent to 1 oldest [Reference Range]: UA Turbidity [Clear] Clear (07/04/16 4:29 PM) UA Color [Yellow] Yellow *NA* (07/04/16 4:29 PM) UA pH [5.0-8.0] 5.0 (07/04/16 4:29 PM) UA Spec Grav 1.023 [<=1.030] (07/04/16 4:29 PM) UA Glucose [Negative Negative mg/dL mg/dL] *NA* (07/04/16 4:29 PM) UA Blood [Negative] Small *ABN* (07/04/16 4:29 PM) UA Ketones [Negative Negative mg/dL mg/dL] *NA* (07/04/16 4:29 PM) UA Protein [Negative Negative mg/dL mg/dL] (07/04/16 4:29 PM) UA Urobilinogen <=1.0 mg/dL [0.1-1.0 mg/dL] *NA* (07/04/16 4:29 PM) UA Bili [Negative] Negative *NA* (07/04/16 4:29 PM) UA Leuk Est Negative [Negative] (07/04/16 4:29 PM) UA Nitrite Negative [Negative] (07/04/16 4:29 PM) UA WBC [0-5 /HPF] 2 /HPF (07/04/16 4:29 PM) UA RBC [0-2 /HPF] 3 /HPF *HI* (07/04/16 4:29 PM) UA Bacteria [None Occasional /HPF Seen /HPF] *NA* (07/04/16 4:29 PM) UA Sq Epi [Few /LPF] Many /LPF *ABN* (07/04/16 4:29 PM) HEMATOLOGY Most recent to 1 oldest [Reference Range]: WBC [3.7-10.4 K/CMM] 8.0 K/CMM (07/04/16 4:29 PM) RBC [4.20-5.40 4.46 M/CMM M/CMM] (07/04/16 4:29 PM) Hgb [12.0-16.0 g/dL] 13.3 g/dL (07/04/16 4:29 PM) Hct [36.0-48.0 %] 39.8 % (07/04/16 4:29 PM) MCV [80.0-98.0 fL] 89.2 fL (07/04/16 4:29 PM) MCH [27.0-31.0 pg] 29.9 pg (07/04/16 4:29 PM) MCHC [32.0-36.0 33.5 g/dL g/dL] (07/04/16 4:29 PM) RDW [11.5-14.5 %] 14.1 % (07/04/16 4:29 PM) Platelet [133-450 265 K/CMM K/CMM] (07/04/16 4:29 PM) MPV [7.4-10.4 fL] 8.9 fL (07/04/16 4:29 PM) Segs [45.0-75.0 %] 61.5 % (07/04/16 4:29 PM) Lymphocytes 27.6 % [20.0-40.0 %] (07/04/16 4:29 PM) Monocytes [2.0-12.0 8.5 % %] (07/04/16 4:29 PM) Eosinophils [0.0-4.0 1.4 % %] (07/04/16 4:29 PM) Basophils [0.0-1.0 1.0 % %] (07/04/16 4:29 PM) Segs-Bands # 4.9 K/CMM [1.5-8.1 K/CMM] (07/04/16 4:29 PM) Lymphocytes # 2.2 K/CMM [1.0-5.5 K/CMM] (07/04/16 4:29 PM) Monocytes # [0.0-0.8 0.7 K/CMM K/CMM] (07/04/16 4:29 PM) Eosinophils # 0.1 K/CMM [0.0-0.5 K/CMM] (07/04/16 4:29 PM) Basophils # [0.0-0.2 0.1 K/CMM K/CMM] (07/04/16 4:29 PM) PT [12.0-14.7 12.9 seconds seconds] (07/04/16 4:29 PM) INR [0.85-1.17] 0.94 (07/04/16 4:29 PM) PTT [22.9-35.8 25.9 seconds seconds] (07/04/16 4:29 PM) Immunizations No data available for this section Procedures Procedure Date Related Diagnosis Body Site Appendectomy Cholecystectomy Hysterectomy Social History Social History Type Response Alcohol Past, Previous treatment: None. Smoking Status Never smoker; Ready to change: No; Concerns about tobacco use in household: No; Exposure to Tobacco Smoke None; Cigarette Smoking Last 365 Days No; Reg Smoking Cessation Counseling No Assessment and Plan No data available for this section
--- OUTSIDE RECORDS SUMMARY | 2019-07-21 11:51 | XMS REPORT | Summary of Care ---
Author Author [facility] Organization [facility] Address Unknown Phone Unavailable Encounter HQ Nati(FIN) [id number] Date(s): 04/08/19 - 04/08/19 [facility] [address] [place] [address]- [phone] Encounter Diagnosis Encounter for screening mammogram for malignant neoplasm of breast (Final) - Discharge Disposition: Home or Self Care Attending Physician: Flako Villa MD Referring Physician: [...]
--- OUTSIDE RECORDS SUMMARY | 2019-07-21 11:51 | XMS REPORT | Summary of Care ---
Author Author [facility] Organization [facility] Address Unknown Phone Unavailable Encounter HQ Nati(JATIN) [id number] Date(s): 04/01/18 - 04/01/18 [facility] [address] [place] [address]- [phone] Discharge Disposition: Home or Self Care Attending [...]
--- OUTSIDE RECORDS SUMMARY | 2019-07-21 11:51 | XMS REPORT | Summary of Care ---
Author Author [facility] Organization [facility] Address Unknown Phone Unavailable Encounter HQ Nati(JATIN) [id number] Date(s): 03/16/17 - 03/16/17 [facility] [address] [place] [address]- [phone] Discharge Disposition: Home or Self Care Attending [...]
--- OUTSIDE RECORDS SUMMARY | 2019-07-21 11:51 | XMS REPORT | Summary of Care ---
Author Organization Unknown Address Unknown Phone Unavailable Encounter HQ Encntr_alias(JATIN) [id number] Date(s): 11/02/14 - 11/02/14 [facility] [address] Discharge Disposition: Home Physician Attending: Flako Villa MD Physician_Referring: Flako Villa MD Reason for Visit SCREENING MAMMO Problem List No data available for this section Allergies, Adverse Reactions, Alerts Substance Reaction Severity Status NKDA Active Medications No data available for this section Medications Administered During Your Visit No data available for this section Immunizations No data available for this section
[2019-07-21 15:10] VITALS: BP 120/72
[2019-07-21 16:23] LABS: WBC,FECAL (FECAL LACTOFERRIN) NEGATIVE (NEGATIVE)
--- NOTE | 2019-07-21 18:25 | Operative Report ---
DATE OF PROCEDURE: 07/21/2019 SURGEON: Rajiv Neff MD PROCEDURES: EGD with biopsies and colonoscopy with polypectomy and biopsies. INDICATIONS FOR EGD: Upper abdominal pain, bloating. INDICATIONS FOR COLONOSCOPY: Diarrhea, bright red blood per rectum. MEDICATIONS: The patient was done under MAC, please see anesthesiologist's note. PROCEDURE IN DETAIL: With the patient in the left lateral decubitus position, a flexible fiberoptic Olympus gastroscope was introduced into the esophagus under direct visualization without any difficulty. There was some patchy erythema noted in distal esophagus. The GE junction appears somewhat nodular and that was biopsied. The scope was then advanced with ease into the stomach and mucosa overlying the antrum and the body revealed some patchy intense erythema and moderate edema, and biopsies were obtained and sent to stain for H. pylori. Pylorus was intubated with ease and the scope was advanced all the way to the second portion of the duodenum. Biopsies were obtained from the second portion and duodenal bulb to rule out sprue. The scope was then withdrawn back into the stomach and retroflexed. Mucosa overlying the fundus and the cardia appeared to be within normal limits. The scope was then straightened out, it was subsequently withdrawn, and the patient tolerated the procedure well. IMPRESSION: 1. Distal esophagitis, mild. 2. GE junction somewhat nodular, biopsied. 3. Gastritis, biopsied, biopsies sent to stain for Helicobacter pylori. 4. Rule out sprue. PLAN: Follow up histology. Initiate Protonix 40 mg one p.o. q.a.m. before meals. The patient was then turned around and after adequate lubrication of the anal canal, a flexible fiberoptic Olympus colonoscope was inserted into the rectum with ease and advanced all the way to the cecum. Diverticular disease was pretty much noted throughout the colon, but it was more prominent in the left colon. The ileocecal valve was intubated and the scope was advanced into the terminal ileum. Biopsies were obtained. The scope was then withdrawn back into the colon. It was then withdrawn slowly and one polyp was removed per the cold biopsy forceps from the ascending colon. The rest of the ascending and the transverse other than for some diverticular disease grossly were unremarkable. There was some patchy mild inflammatory changes noted in the left colon and multiple random biopsies were obtained. One polyp was removed per the cold biopsy forceps from the sigmoid colon. Similar inflammatory changes were noted in the rectum. The scope was then retroflexed into the distal rectum. Small internal hemorrhoids were noted, none of which was actively bleeding. The scope was then straightened out and it was subsequently withdrawn after securing an adequate stool specimen that was sent for the appropriate stool studies. The patient tolerated the procedure well. IMPRESSION: 1. Pandiverticulosis. 2. Ascending colon polyp removed per the cold biopsy forceps. 3. Mild patchy left-sided colitis. 4. Sigmoid colon polyp removed per biopsy forceps. 5. Proctitis, mild. 6. Internal hemorrhoids, none actively bleeding. PLAN: Follow up histology. Follow up stool studies. Initiate Bentyl 10 mg one p.o. t.i.d. and Visbiome 1 p.o. b.i.d. Rajiv Neff MD [facility] [place]/MODL /[id number] cc: Flako Villa MD
[2019-07-22 14:38] LABS: C DIFFICILE TOXIN A&B AMP PROB NEGATIVE (NEGATIVE)
== END | disposition home or self-care (01) ==
LOC: OR 11:39
PROVIDERS: ATTEND Internal Medicine Gastroenterology
DX: K51.50 Left sided colitis without complications (principal); D12.2 Benign neoplasm of ascending colon; K29.70 Gastritis, unspecified, without bleeding; K20.9 Esophagitis, unspecified; K22.8 Other specified diseases of esophagus; K62.89 Other specified diseases of anus and rectum; K57.30 Diverticulosis of large intestine without perforation or abscess without bleeding; K64.8 Other hemorrhoids; I10 Essential (primary) hypertension; E78.5 Hyperlipidemia, unspecified; E11.9 Type 2 diabetes mellitus without complications; E03.9 Hypothyroidism, unspecified; Z88.0 Allergy status to penicillin; Z01.810 Encounter for preprocedural cardiovascular examination; Z01.812 Encounter for preprocedural laboratory examination; Z79.84 Long term (current) use of oral hypoglycemic drugs; Z68.37 Body mass index [BMI] 37.0-37.9, adult
CPT/HCPCS: 36415 ×2; 43239; 45380; 82948; 83630; 83993; 85025; 87045; 87177; 87328; 87493; 88305; 88312; 93005; J2250; J2704; J3010; 45378; 45384